=== PATIENT | male | born 1960 | race Caucasian/White ===

== ENCOUNTER → 2021-05-02 | Outpatient (CLI) | payer OTHER ==
[~2021-05-02] VITALS: Ht 177.8 cm; Wt 111.1 kg
[~2021-05-02] MED LIST: FLEXERIL PO; FLONASE 0.05%50 MCG NARES; HYDROCODON-ACE1 EAC7 PO; MEDROLDOSEPACK PO; MONTELUKAST SODI4 M1 PO; TRELEGY ELLIPT1 EACH INH
[2021-05-02 09:02] VITALS: BP 157/89
--- NOTE | 2021-05-02 09:12 | NUR ---
Pain Clinic Assessment: 1. History of Osteoarthritis: Not Applicable History of Rheumatoid Arthritis: Not Applicable 2. Height: 5 ft. 10 in. 177.8 cm. Weight: 245.0 lb. oz. 111.132 kg. Patient's BMI: 35.2 3. Vital Signs: BP: 157/89 Pulse: 93 Resp: 16 Temp: 02 Sat: 98 ECG Mon: 4. Pain Intensity: 10 5. Fall Risk: Dizziness: N Needs help standing or walking: N Fallen in the last 3 months: N Fall risk comments: 6. Patient on Blood Thinner: None 7. History of Hypertension: N 8. Opioid Therapy greater than 6 weeks: N Opiate Contract Signed: 9. Risk Assessment Tool Provided: LOW-0 10. Functional Assessment Tool: / 11. Recreational Drug Use: Never Drug Type: Tobacco Use: Never Smoker Tobacco Type: Amount or Packs/day: How Many Years: Alcohol Use: Yes Frequency: Weekly Quant: 2
== END ==
LOC: PAIN 07:02
PROVIDERS: ATTEND Anesthesiology Pain Medicine
DX: M54.16 Radiculopathy, lumbar region (principal); N18.30 Chronic kidney disease, stage 3 unspecified; M76.62 Achilles tendinitis, left leg; M72.9 Fibroblastic disorder, unspecified; R35.1 Nocturia; E78.00 Pure hypercholesterolemia, unspecified; Z72.89 Other problems related to lifestyle; Z86.16 Personal history of COVID-19; Z79.899 Other long term (current) drug therapy; Z79.891 Long term (current) use of opiate analgesic; Z88.5 Allergy status to narcotic agent

== ENCOUNTER → 2021-05-07 | Outpatient (CLI) | payer OTHER ==
[~2021-05-07] VITALS: Ht 170.2 cm; Wt 121.6 kg
[~2021-05-07] MED LIST changes: +TRAMADOL 50 MG50 MG PO
[2021-05-07 09:18] VITALS: BP 143/89
--- NOTE | 2021-05-07 09:30 | NUR ---
Pain Clinic Assessment: 1. History of Osteoarthritis: Not Applicable History of Rheumatoid Arthritis: Not Applicable 2. Height: 5 ft. 7 in. 170.2 cm. Weight: 268.0 lb. oz. 121.564 kg. Patient's BMI: 42.0 3. Vital Signs: BP: 143/89 Pulse: 67 Resp: 18 Temp: 02 Sat: 97 ECG Mon: 4. Pain Intensity: 5 5. Fall Risk: Dizziness: N Needs help standing or walking: N Fallen in the last 3 months: N Fall risk comments: 6. Patient on Blood Thinner: None 7. History of Hypertension: N 8. Opioid Therapy greater than 6 weeks: N Opiate Contract Signed: 9. Risk Assessment Tool Provided: LOW-0 10. Functional Assessment Tool: / 11. Recreational Drug Use: Never Drug Type: Tobacco Use: Never Smoker Tobacco Type: Amount or Packs/day: How Many Years: Alcohol Use: Yes Frequency: Quant:
== END | disposition home or self-care (01) ==
LOC: PAIN 06:58
PROVIDERS: ATTEND Anesthesiology Pain Medicine
DX: M54.16 Radiculopathy, lumbar region (principal); G89.29 Other chronic pain